=== PATIENT | female | born 1950 | race Caucasian/White ===

== ENCOUNTER 2017-05-20 12:35 | Inpatient (IN) ==
[2017-05-20] MEDS ORDERED: GI Cocktail 40 ML EACH PO ONE (12:47)
[2017-05-20] MEDS ORDERED: Ondansetron 4 MG/2 ML VIAL IVP ONE (12:47)
[2017-05-20] MEDS ORDERED: 0.9 % Sodium Chloride 1,000 ML IVC ONE ×2 (12:47→13:42)
[2017-05-20] MEDS ORDERED: *HR* HYDROmorphone (PF) 1 MG/ML SYRINGE IVP ONE (12:47)
--- NOTE | 2017-05-20 12:58 | Emergency Department Note ---
Disposition Clinical Impression: Pleural effusion, Dehydration, Weakness, HCAP (healthcare-associated pneumonia) Sepsis Qualifiers: Sepsis type: sepsis due to unspecified organism Qualified Code(s): A41.9 - Sepsis, unspecified organism Intractable nausea and vomiting Qualifiers: Vomiting type: unspecified Qualified Code(s): R11.2 - Nausea with vomiting, unspecified Disposition: Admitted As Inpatient Condition: Fair General Adult HPI - General Chief complaint: ED Abdominal Pain Stated complaint: Vomiting,fatique Time Seen by Provider: 05/20/17 12:38 Source: patient Mode of arrival: private vehicle Limitations: no limitations Nursing Notes Reviewed: Yes Vital Signs Reviewed: Yes - History of Present Illness HPI Narrative: 67-year-old female history of lung cancer currently on chemotherapy with her last treatment roughly 2 weeks ago, prior breast cancer, hypertension who presents to the ER with a chief complaint of vomiting, fatigue and cough. Patient states that for 3 days she has had nausea and vomiting at home unable to keep down any food or fluids. Family reports she has never been sick after receiving chemotherapy but they did change her last regimen 3 weeks ago. She states that she has had abdominal pain in the epigastric region and takes Prilosec at home. She was seen today by her oncologist who referred her here due to concern for dehydration. Family also reports oncology was concerned about her brain and wanted a head CT performed. She reports a prior surgical history of cholecystectomy. She denies fevers at home. She has had a cough but says that is improving. No diarrhea. No other complaints. Pt Subjective Complaint: Weakness, vomiting, Cough Onset (ago): day(s) (3) Location: abdomen Radiation: non-radiation Pain Severity: moderate Pain Scale: 6 Quality: aching Consistency: constant Improves with: nothing Worsens with: nothing Associated symptoms: Reports: cough, nausea/vomiting, weakness. Denies: chest pain, fever/chills, shortness of breath Treatments Prior to Arrival: none - Related Data Home Medications Medication Instructions Recorded Confirmed Atorvastatin [Lipitor] 80 mg PO DAILY 01/29/16 05/20/17 Metoprolol [Lopressor] 12.5 mg PO BID 01/29/16 05/20/17 levoFLOXacin [Levaquin] 500 mg PO DAILY 05/20/17 05/20/17 Previous Rx's Medication Instructions Recorded Aspirin 81 mg PO DAILY tab.chew 10/31/15 Cholecalciferol (Vitamin D3) 5,000 unit PO DAILY #30 capsule 10/31/15 [Dialyvite Vitamin D] Clopidogrel [Plavix] 75 mg PO DAILY #30 tablet 10/31/15 Omeprazole [PriLOSEC] 40 mg PO DAILY #30 cap 12/30/16 Ibuprofen [Motrin] 600 mg PO TID PRN #20 tab 02/21/17 Ondansetron [Zofran] 8 mg PO Q8HR PRN #90 tablet 03/13/17 Prochlorperazine Maleate 10 mg PO Q8HR PRN #90 tablet 03/13/17 [Compazine] Morphine Immed Rel [Morphine 15 mg PO BID PRN #60 tab 04/28/17 Sulfate] Levothyroxine [Synthroid] 175 mcg PO DAILY #30 tablet 05/13/17 Allergies Allergy/AdvReac Type Severity Reaction Status Date / Time butorphanol [From Stadol] Allergy Severe Anaphylaxis Verified 05/20/17 12:40 codeine Allergy Severe Anaphylaxis Verified 05/20/17 12:40 All systems ED: reviewed and negative except as stated. Constitutional: Reports: weakness. Denies: fever Cardiovascular: Denies: chest pain Respiratory: Reports: cough. Denies: dyspnea Gastrointestinal: Reports: abdominal pain, nausea, vomiting. Denies: diarrhea Genitourinary: Denies: dysuria, hematuria Past Medical History - Past Medical History Attestation: Yes The following information was validated with the patient. Source: patient Medical history: Reports: cancer, coronary artery disease, diabetes, myocardial infarction, peripheral artery disease, valvular heart disease Surgical history: Reports: appendectomy, cancer surgery, cholecystectomy, other Psychiatric history: Reports: anxiety, depression - Social History Smoking Status: Former smoker Smokeless Tobacco Status: No Alcohol use: Reports: none Drug use: Reports: none Physical Exam - General Limitations: no limitations General appearance: alert, in no apparent distress, cachectic - Head Head exam: atraumatic, normocephalic, normal inspection - Eye Eye exam: Present: normal appearance, EOMI - ENT ENT exam: normal exam, mucous membranes dry - Neck Neck exam: Present: normal inspection, full ROM - Chest Chest inspection: Present: normal inspection, symmetric chest wall rise - Respiratory Respiratory exam: Present: normal lung sounds bilaterally - Cardiovascular Cardiovascular exam: Present: normal rhythm, tachycardia, normal heart sounds - Abdominal Exam Abdominal exam: Present: soft, tenderness (Patient has moderate tenderness to palpation in the epigastric region without distention, rigidity or guarding.) - Extremities Exam Extremities exam: Present: normal inspection, full ROM - Expanded Upper Extremity Exam Shoulder exam: Present: normal inspection, full ROM Arm exam: Present: normal inspection, full ROM Elbow exam: Present: normal inspection, full ROM Forearm/Wrist exam: Present: normal inspection, full ROM Hand exam: Present: normal inspection, full ROM Vascular exam: Normal: radial pulse - Expanded Lower Extremity Exam Hip/Pelvis exam: Present: normal inspection, full ROM Upper leg exam: Present: normal inspection, full ROM Knee exam: Present: normal inspection, full ROM Lower leg exam: Present: normal inspection, full ROM Ankle exam: Present: normal inspection, full ROM Foot/toe exam: Present: normal inspection, full ROM Neurovascular/Tendon exam: Absent: motor deficit, sensory deficit - Neurological Exam Neurological exam: Present: alert, other (GCS 15. Nonfocal neurologic exam.) - Psychiatric Psychiatric exam: Present: normal affect, normal mood - Skin Skin exam: Present: warm, dry, intact, normal color Course Course Narrative: Patient seen and examined. Vital signs reviewed. She is tachycardic here with a stable blood pressure. She does appear to be dehydrated on exam. We will obtain basic labs, urinalysis, CT of the abdomen and pelvis for evaluation of her nausea vomiting and abdominal pain. We will also obtain an EKG and chest x- ray given her cough. We will also order a head CT scan as the family reports a prior history of treatments although she was never diagnosed with brain cancer given her recent vomiting. Patient will likely require admission for dehydration, intractable nausea and vomiting. - Reevaluation(s) Reevaluation #1: I discussed the results of labs and imaging today with the patient. She has a complete opacification of the right lung. She is in agreement to have a CT scan of the chest for further evaluation. Reevaluation #2: Discussed results of the CT scan with the patient. - Consultations Consultation #1: At the request of the hospitalist I spoke with the on-call photogrammetric engineer. Discussed the patient's history and exam imaging and lab findings. They are happy to see the patient in consult. I will place a consult order into the chart. Vital Signs Temperature 98.0 F 05/20/17 12:43 Pulse Rate 146 05/20/17 12:43 Respiratory Rate 20 05/20/17 12:43 Blood Pressure 112/58 05/20/17 12:43 O2 Sat by Pulse Oximetry 98 05/20/17 12:43 Temperature 98.0 F 05/20/17 12:43 Pulse Rate 70 05/20/17 15:24 Respiratory Rate 18 05/20/17 16:23 Blood Pressure 96/61 05/20/17 16:23 O2 Sat by Pulse Oximetry 98 05/20/17 15:24 Oxygen Delivery Oxygen Delivery Room Air Medical Decision Making - MDM Narrative Medical decision making narrative: 67-year-old female presents to the ER due to weakness, vomiting and cough. Currently on chemotherapy for lung cancer. She is afebrile here. She has a complete opacification of her right lung. Her white count is 19 here which is greatly elevated from her baseline. Given concern for postobstructive pneumonia patient is placed on broad-spectrum antibiotics including vancomycin, Zosyn and Levaquin. CT scan of the abdomen and pelvis does not delineate an acute abnormality. Head CT read as normal as well. The patient admitted to the hospitalist service for sepsis, pleural effusion, intractable nausea and vomiting and weakness. - Lab Data Lab results reviewed: Yes I reviewed the patient's lab results. Result diagrams: 05/20/17 12:55 05/20/17 12:55 Lab Results 05/20/17 05/20/17 05/20/17 Range/Units 12:55 12:55 12:55 WBC 19.3 H D (4.3-11.1) K/mcL RBC 3.35 L (3.82-4.97) M/mcL Hgb 8.6 L (11.5-15.4) g/dL Hct 28.2 L (35.3-44.9) % MCV 84.2 (83.0-100.0) fL MCH 25.7 L (28.0-33.3) pg MCHC 30.5 L (31.6-35.5) g/dL RDW 18.2 H (11.5-14.5) % Plt Count 245 (140-400) K/mcL MPV 11.1 (9.4-12.4) fL Seg Neutrophils % 84.0 % Lymphocytes % 8.0 % Monocytes % 4.0 % Eosinophils % 2.0 % Metamyelocytes % 2.0 H (0) % Neutrophils # 16.2 H (1.6-8.9) K/mcL Lymphocytes # 1.5 (0.6-4.6) K/mcL Monocytes # 0.8 (0.0-1.3) K/mcL Eosinophils # 0.4 (0.0-0.6) K/mcL Nucleated RBCs/100 WBC 0.5 H (0) /100 WBC Platelet Estimate Normal (Normal) Polychromasia 1+ A (Not Present) Hypochromasia Present A (Not Present) Anisocytosis 1+ A (Not Present) Macrocytosis Present A (Not Present) Sodium 134 L (136-145) mEq/L Potassium 4.4 (3.5-4.5) mEq/L Chloride 100 (98-109) mEq/L Carbon Dioxide 23 (19-29) mEq/L BUN 25 H (7-20) mg/dL Creatinine 1.13 H (0.57-1.11) mg/dL Est GFR ( Amer) 58 L (> 60) Est GFR (Non-Af Amer) 48 L (> 60) BUN/Creatinine Ratio 22 (6-26) Glucose 137 H (70-99) mg/dL Calculated Osmolality 285 (280-300) Lactic Acid (0.5-2.2) mmol/L Calcium 8.6 (8.6-10.8) mg/dL Total Bilirubin < 0.3 (0.2-1.2) mg/dL Direct Bilirubin 0.2 (0.0-0.5) mg/dL Indirect Bilirubin 0.1 (0.0-1.2) mg/dL AST 17 (5-34) Units/L ALT < 6 (0-55) Units/L Alkaline Phosphatase 100 (38-126) Units/L Troponin I 0.00 (0-0.03) ng/mL Serum Total Protein 5.9 L (6.0-8.3) g/dL Albumin 2.4 L (3.5-5.0) g/dL Globulin 3.5 (2.4-3.5) g/dL Albumin/Globulin Ratio 0.7 L (1.1-2.2) Amylase 27 (25-125) Units/L Lipase 13 (8-78) Units/L Urine Color (Yellow) Urine Clarity (Clear) Urine pH (5.0-8.0) pH Units Ur Specific [place] (1.010-1.025) Urine Protein (Neg-Trace) mg/dL Urine Glucose (UA) (Normal) mg/dL Urine Ketones (Negative) mg/dL Urine Blood (Negative) Urine Nitrite (Negative) Urine Bilirubin (Negative) Urine Urobilinogen (Normal) mg/dL Ur Leukocyte Esterase (Negative) Urine Microscopic RBC (0-3) per hpf Urine Microscopic WBC (0-3) per hpf Ur Squamous Epith Cells (None-Few) per lpf Amorphous Sediment (Few) Urine Bacteria (None-Few) per hpf Hyaline Casts (None-Few) per lpf Urine Mucus (Few) Ur Culture Indicated? (NO) 05/20/17 05/20/17 Range/Units 14:29 14:38 WBC (4.3-11.1) K/mcL RBC (3.82-4.97) M/mcL Hgb (11.5-15.4) g/dL Hct (35.3-44.9) % MCV (83.0-100.0) fL MCH (28.0-33.3) pg MCHC (31.6-35.5) g/dL RDW (11.5-14.5) % Plt Count (140-400) K/mcL MPV (9.4-12.4) fL Seg Neutrophils % % Lymphocytes % % Monocytes % % Eosinophils % % Metamyelocytes % (0) % Neutrophils # (1.6-8.9) K/mcL Lymphocytes # (0.6-4.6) K/mcL Monocytes # (0.0-1.3) K/mcL Eosinophils # (0.0-0.6) K/mcL Nucleated RBCs/100 WBC (0) /100 WBC Platelet Estimate (Normal) Polychromasia (Not Present) Hypochromasia (Not Present) Anisocytosis (Not Present) Macrocytosis (Not Present) Sodium (136-145) mEq/L Potassium (3.5-4.5) mEq/L Chloride (98-109) mEq/L Carbon Dioxide (19-29) mEq/L BUN (7-20) mg/dL Creatinine (0.57-1.11) mg/dL Est GFR ( Amer) (> 60) Est GFR (Non-Af Amer) (> 60) BUN/Creatinine Ratio (6-26) Glucose (70-99) mg/dL Calculated Osmolality (280-300) Lactic Acid 1.4 (0.5-2.2) mmol/L Calcium (8.6-10.8) mg/dL Total Bilirubin (0.2-1.2) mg/dL Direct Bilirubin (0.0-0.5) mg/dL Indirect Bilirubin (0.0-1.2) mg/dL AST (5-34) Units/L ALT (0-55) Units/L Alkaline Phosphatase (38-126) Units/L Troponin I (0-0.03) ng/mL Serum Total Protein (6.0-8.3) g/dL Albumin (3.5-5.0) g/dL Globulin (2.4-3.5) g/dL Albumin/Globulin Ratio (1.1-2.2) Amylase (25-125) Units/L Lipase (8-78) Units/L Urine Color Yellow (Yellow) Urine Clarity Slightly Hazy (Clear) Urine pH 6.0 (5.0-8.0) pH Units Ur Specific [place] 1.024 (1.010-1.025) Urine Protein 100 H (Neg-Trace) mg/dL Urine Glucose (UA) Normal (Normal) mg/dL Urine Ketones 15 H (Negative) mg/dL Urine Blood Negative (Negative) Urine Nitrite Negative (Negative) Urine Bilirubin Moderate H (Negative) Urine Urobilinogen Normal (Normal) mg/dL Ur Leukocyte Esterase Negative (Negative) Urine Microscopic RBC 0-3 (0-3) per hpf Urine Microscopic WBC 5-15 H (0-3) per hpf Ur Squamous Epith Cells Few (None-Few) per lpf Amorphous Sediment Few (Few) Urine Bacteria None Seen (None-Few) per hpf Hyaline Casts Few (None-Few) per lpf Urine Mucus Few (Few) Ur Culture Indicated? YES A (NO) - Radiology Data Radiology results reviewed: Yes I reviewed the patient's radiology results. Abdomen/Pelvis CT 05/20/17 12:48 IMPRESSION: No acute intra-abdominal or pelvic process is identified. No evidence of small or large bowel obstruction or acute inflammatory process. Large right pleural effusion, with similar appearing consolidation of the right lower lobe which may be post obstructive in this patient with known right-sided lung cancer. Again identified is similar haziness within the mesentery, with scattered small lymph nodes. No interval development of lymphadenopathy. D/ / Jean Franklin MD / Jean Franklin MD Interpreting Provider: Jean Franklin MD Head CT 05/20/17 12:49 IMPRESSION: No acute intracranial abnormality. D/ / Ed Castle MD / Ed Castle MD Interpreting Provider: Ed Castle MD Chest X-Ray 05/20/17 12:50 IMPRESSION: Complete opacification of the right hemithorax, likely representing a combination of pleural fluid and consolidation. This finding has progressed from the prior examination. D/ / Chris Peace MD / Chris Peace MD Interpreting Provider: Chris Peace MD Chest CT 05/20/17 14:17 IMPRESSION: 1. Suspected persistent right perihilar mass which is difficult to measure given that there is now complete consolidation of the right lung which surrounds the right perihilar mass, with soft tissue attenuation completely obstructing the bronchus intermedius, representing either mucous plugging or soft tissue invasion by the patient's mass lesion. There is minimal aeration of the right upper lobe. 2. Interval increase in size of a now large right pleural effusion. 3. Interval development of a small left pleural effusion. 4. Mild left basilar atelectasis. 5. Multiple stable scattered pulmonary nodules throughout the left lung, large measuring 5 mm within left lower lobe. 1 is likely reflect benign coma, continued imaging surveillance is suggested as metastatic disease is not excluded. 6. Slight interval worsening of metastatic mediastinal lymphadenopathy. 7. Stable small pericardial effusion. D/ / Ludwig Dominguez MD / Ludwig Dominguez MD Interpreting Provider: Ludwig Dominguez MD - EKG Data EKG #1 EKG attestation: Yes I reviewed and interpreted this EKG. EKG results narrative: EKG demonstrates sinus tachycardia with rate of 141. Normal axis. No medical intervals. Nonspecific ST-T wave changes in lateral and inferior leads likely secondary to rate. No gross ST elevations or depressions. [email or web address] - Di Situation: Demographics, MOA Background: Presenting Complaint, Relevant PMH, Meds, & Allergies Assessment: Vital Signs, Course and respsone to treatment, Exam Concerns, Patient/Family Expectation, Pertinant Lab Results, Outstanding Labs Recommendation: Barrier(s) to disposition, Recommendation based on pending studies, treatments, or consults [facility] Report Given to: Dr. Aubrey Sevilla Repor Time: 15:54 (Request pulmonology consult) Attestation Statement - Attestation Attestation: I examined this patient and my medical decision-making was reviewed with the Resident Physician. I agree with the documented findings, disposition and treatment plan as described except to the extent set forth below. There is evidence of opacification of the lung. Plan to consult pulmonology and admit with broad-spectrum antibiotics with coverage for hospital-acquired pneumonia. White blood cell count is elevated. Patient be admitted for further evaluation. No respiratory distress at time of admission.
[2017-05-20] MEDS ORDERED: Piperacillin/Tazobactam 3.375 GM in D5% in Water (Mini-Bag+) 100 ML IVPB ONE (13:05)
[2017-05-20] MEDS ORDERED: Levofloxacin 750 MG/150 ML 750 MG/150 ML BAG IVPB ONE (13:05)
[2017-05-20 13:09] LABS: Hematocrit 28.2 % (35.3-44.9); Hemoglobin 8.6 g/dL (11.5-15.4); Mean Corpuscular HGB Conc 30.5 g/dL (31.6-35.5); Mean Corpuscular Hemoglobin 25.7 pg (28.0-33.3); Mean Corpuscular Volume 84.2 fL (83.0-100.0); Mean Platelet Volume 11.1 fL (9.4-12.4); Nucleated Red Blood Cells 0.5 /100 WBC (0); Platelet Count 245 K/mcL (140-400); Red Blood Count 3.35 M/mcL (3.82-4.97); Red Cell Distribution Width 18.2 % (11.5-14.5)
[2017-05-20 13:24] LABS: Alanine Aminotransferase < 6 Units/L (0-55); Albumin 2.4 g/dL (3.5-5.0); Albumin/Globulin Ratio 0.7 (1.1-2.2); Alkaline Phosphatase 100 Units/L (38-126); Amylase 27 Units/L (25-125); Aspartate Amino Transferase 17 Units/L (5-34); BUN/Creatinine Ratio 22 (6-26); Bilirubin,Direct 0.2 mg/dL (0.0-0.5); Bilirubin,Indirect 0.1 mg/dL (0.0-1.2); Bilirubin,Total < 0.3 mg/dL (0.2-1.2); Blood Urea Nitrogen 25 mg/dL (7-20); Calcium 8.6 mg/dL (8.6-10.8); Carbon Dioxide 23 mEq/L (19-29); Chloride 100 mEq/L (98-109); Globulin 3.5 g/dL (2.4-3.5); Glucose 137 mg/dL (70-99); Lipase 13 Units/L (8-78); Osmolality,Calculated 285 (280-300); Potassium 4.4 mEq/L (3.5-4.5); Sodium 134 mEq/L (136-145); Total Protein 5.9 g/dL (6.0-8.3); eGFR For African Americans 58 (> 60); eGFR For Non-African Americans 48 (> 60)
[2017-05-20 13:38] LABS: Eosinophils # 0.4 K/mcL (0.0-0.6); Lymphocytes # 1.5 K/mcL (0.6-4.6); Monocytes # 0.8 K/mcL (0.0-1.3); Neutrophils # 16.2 K/mcL (1.6-8.9); Platelet Estimate Normal (Normal)
[2017-05-20 13:39] LABS: Anisocytosis 1+ (Not Present); Hypochromasia Present (Not Present); Macrocytosis Present (Not Present); Polychromasia 1+ (Not Present)
[2017-05-20] MEDS ORDERED: Vancomycin 1,000 MG in D5% in Water 250 ML IVPB ONE ×2 (14:00→16:00)
[2017-05-20 14:45] LABS: Bilirubin,Urine Moderate (Negative); Blood,Urine Negative (Negative); Color,Urine Yellow (Yellow); Glucose,Urine (UA) Normal (Normal); Ketones,Urine 15 mg/dL (Negative); Leukocyte Esterase,Urine Negative (Negative); Nitrite,Urine Negative (Negative); Protein,Urine 100 mg/dL (Neg-Trace); Specific Gravity,Urine 1.024 (1.010-1.025); Urobilinogen,Urine Normal (Normal)
[2017-05-20 14:48] LABS: Bacteria,Urine None Seen per hpf (None-Few)
[2017-05-20 14:54] LABS: Clarity,Urine Slightly Hazy (Clear)
[2017-05-20 15:00] LABS: Hyaline Casts,Urine Few per lpf (None-Few)
[2017-05-20 15:01] LABS: Mucus,Urine Few (Few); Squamous Epithelial Cell,Urine Few per lpf (None-Few)
[2017-05-20 15:02] LABS: Amorphous Sediment,Urine Few (Few)
[2017-05-20 15:03] LABS: RBC,Urine 0-3 per hpf (0-3)
[2017-05-20] MEDS ORDERED: Ondansetron ODT 4 MG TAB.RAPDIS PO PRN (16:49)
[2017-05-20] MEDS ORDERED: *HR* Morphine Immed Rel 30 MG TABLET PO PRN (16:49)
[2017-05-20] MEDS ORDERED: Naloxone 0.4 MG/ML INJ IVP PRN (16:50)
[2017-05-20] MEDS ORDERED: *HR* HYDROmorphone (PF) 1 MG/ML SYRINGE IVP PRN (16:50)
[2017-05-20] MEDS ORDERED: Acetaminophen 325 MG TABLET PO PRN (16:53)
[2017-05-20] MEDS ORDERED: Vancomycin 1,000 MG in D5% in Water 250 ML IVPB SCH (17:00)
[2017-05-20 17:30] LABS: INR 1.2; Prothrombin Time 13.1 Seconds (9.4-12.1)
--- NOTE | 2017-05-20 17:38 | Internal Med History&Physical ---
<Ludwig Marroquin - Last Filed: 05/20/17 18:14> Date of Encounter: 05/20/17 Time of Encounter: 17:29 Assessment and Plan (1) Intractable nausea and vomiting Current visit: Yes Status: Acute - Likely secondary to recent chemotherapy treatments versus increased abdominal pressure secondary to pleural effusion. Less likely infectious cause - No episodes of vomiting today. Patient reports improved symptoms after GI cocktail in the emergency department. - Diet as tolerated - Prilosec, Zofran, Compazine Qualifiers: Vomiting type: unspecified Qualified Code(s): R11.2 - Nausea with vomiting , unspecified (2) Dehydration Current visit: Yes Status: Acute - The hydration secondary to decreased oral intake for the past 3 days - Received 2 L of normal saline in the emergency department - Patient reports improvement of symptoms after GI cocktail and emergency department. - We will advance diet as tolerated (3) HCAP (healthcare-associated pneumonia) Current visit: Yes Status: Acute - Given elevated white count of 19.3, radio opaque right lung, history of recent chemotherapy and cough - will start on empiric antibiotics of vancomycin, Zosyn, Levaquin - Afebrile since admission. Tachycardic of 146 on admission, currently 73 - Lactic acid 1.4. (4) Pleural effusion Current visit: Yes Status: Acute - Chest x-ray and CT chest showing arch pleural effusion involving entire right lung - Thoracentesis performed on 05/20/17 - Follow up chest xray has been ordered - Pulmonology consulted, will see her tomorrow (5) Anemia Current visit: No Status: Chronic - Chronic anemia - H&H on admission of 8.6/28.2 - MCV of 84.2 - Clinic combination of chronic disease and iron deficiency - Continue to monitor Qualifiers: Anemia type: unspecified type Qualified Code(s): D64.9 - Anemia, unspecified (6) Coronary artery disease Current visit: No Status: Chronic - Stable. No complaints of chest pain - Continue home aspirin, atorvastatin, metoprolol Qualifiers: Coronary Disease-Associated Artery/Lesion type: unspecified vessel or lesion type [place] vs. transplanted heart: [place] heart Associated angina: without angina Qualified Code(s): I25.10 - Atherosclerotic heart disease of [place] coronary artery without angina pectoris (7) Small cell lung cancer Current visit: No Status: Chronic - History of small cell lung cancer - Receiving chemotherapy, most recently 2 weeks ago. Next treatment scheduled for Monday 05/28 - Continue treatment as outpatient Qualifiers: Laterality: right Qualified Code(s): C34.91 - Malignant neoplasm of unspecified part of right bronchus or lung (8) DVT prophylaxis Current visit: Yes Status: Acute SCDs Internal Medicine - H&P: HPI Chief complaint: nausea and vomiting x 3 days Admitted From: Emergency Dept Plans for Post Hospital Care: Home History of present illness: Ms. Jesus is a 67 year old female recently emerged from the chief complaint of nausea and vomiting, abdominal pain 3 days. She is a significant past medical history of small cell lung cancer for which she is currently receiving chemotherapy with her last treatment approximately 2 weeks ago. She sees chemotherapy every 3 weeks. She does not experience these type of adverse effects for her chemotherapy treatment to this point, however she is early on in her treatment per family. Patient states that she began to experience sudden onset nausea, vomiting, abdominal pain starting Thursday evening. She states that she experienced 3 episodes of vomiting that were clear without evidence of bile, hematemesis, coffee-ground emesis. She reports no further episodes of vomiting since, however she does state that she has been unable to keep down any food or liquids since Thursday. She reports decreased appetite, as well as odynophagia as well as epigastric abdominal pain at / and constant and states that the food "just sits in her stomach" after meals. Abdominal pain is dull in nature and is worse after attempting meals. No relieving factors. He states she has not eaten or drank anything except for one popsicle which she immediately experienced vomiting afterwards on Thursday. She was seen by her oncologist today, and was told to go the emergency room for concern of dehydration. Denies Sick contacts or recent travel. She denies any symptoms of fever, chills, chest pain, melena, hematochezia. She does admit to shortness of breath exacerbated with exertion and cough with thick white sputum production. Has been present and unchanging for a couple weeks. She also admits to constipation for the past couple days, however she believes this is attributed to not eating. Past Med Surg Social Fam HX - Past Medical History Medical history: cancer, coronary artery disease, diabetes, myocardial infarction, peripheral artery disease, valvular heart disease Psychiatric history: anxiety, depression - Past Surgical History Surgical History: appendectomy, cancer surgery, cholecystectomy, other - Social History Smoking Status: Former smoker Smokeless Tobacco Status: No Alcohol use: none Drug use: none - Family History Mother Living Status: Hx Family Cancer: Yes (breast) Father Family Member Ethnicity: Non- Living Status: Hx Family Cardiac Disorders: Yes Internal Medicine - H&P: Meds Aspirin 81 mg PO DAILY tab.chew 10/31/15 [Rx] Cholecalciferol (Vitamin D3) [Dialyvite Vitamin D] 5,000 unit PO DAILY #30 capsule 10/31/15 [Rx] Clopidogrel [Plavix] 75 mg PO DAILY #30 tablet 10/31/15 [Rx] Atorvastatin [Lipitor] 80 mg PO DAILY 01/29/16 [History] Metoprolol [Lopressor] 12.5 mg PO BID 01/29/16 [History] Omeprazole [PriLOSEC] 40 mg PO DAILY #30 cap 12/30/16 [Rx] Ibuprofen [Motrin] 600 mg PO TID PRN #20 tab 02/21/17 [Rx] Ondansetron [Zofran] 8 mg PO Q8HR PRN #90 tablet 03/13/17 [Rx] Prochlorperazine Maleate [Compazine] 10 mg PO Q8HR PRN #90 tablet 03/13/17 [Rx] Morphine Immed Rel [Morphine Sulfate] 15 mg PO BID PRN #60 tab 04/28/17 [Rx] Levothyroxine [Synthroid] 175 mcg PO DAILY #30 tablet 05/13/17 [Rx] levoFLOXacin [Levaquin] 500 mg PO DAILY 05/20/17 [History] 3 Allergy/AdvReac Type Severity Reaction Status Date / Time butorphanol [From Stadol] Allergy Severe Anaphylaxis Verified 05/20/17 12:40 codeine Allergy Severe Anaphylaxis Verified 05/20/17 12:40 All Systems PM: A 10-system review of systems was performed and is negative for pertinent findings except as documented above in the HPI. - Constitutional Constitutional: as per HPI, anorexia, fatigue, no chills, no fever(s) - EENT Nose, mouth and throat: dry mouth, odynophagia - Cardiovascular Cardiovascular ROS IM: dyspnea, dyspnea on exertion, no chest pain, no diaphoresis, no edema - Respiratory Respiratory: cough, dyspnea, dyspnea on exertion, no pain on inspiration - Gastrointestinal Gastrointestinal: abdominal pain, constipation, dyspepsia, early satiety, odynophagia, no diarrhea, no hematemesis, no hematochezia, no melena - Musculoskeletal Musculoskeletal ROS IM: muscle weakness - Neurological Neurological ROS: as per HPI - Psychiatric Psychiatric: as per HPI - Constitutional Vitals: Temp Pulse Resp BP Pulse Ox 98.0 F 70 18 96/61 98 05/20/17 12:43 05/20/17 15:24 05/20/17 16:23 05/20/17 16:23 05/20/17 15:24 Exam: Gen.: Vitals noted. No acute distress. AAOx3 HEENT: PERRL/EOMI, oropharynx clear, Normocephalic, atraumatic. Dry mucous membranes Neck: Supple. No adenopathy. Cardiac: RRR, no murmur, +S1/S2 Pulmonary: Unable to auscultate sounds on right side, clear to auscultation on the right side. Abdomen: Tender to palpation in epigastric region. soft, BS noted, no guarding Back: Nontender throughout. MSK: ROM intact, no joint swelling noted Extremities: no BLE edema, nontender calf, no cyanosis or clubbing Neuro: A&Ox3, moves all extremities, no focal deficits Psych: Appropriate mood and behavior Internal Med - H&P Results - Labs CBC & Chem 7: 05/20/17 12:55 05/20/17 12:55 <Lorenzo Al A - Last Filed: 05/20/17 19:15> Date of Encounter: 05/20/17 Assessment and Plan (1) Acute on chronic respiratory failure with hypoxia Current visit: Yes Status: Acute (2) Pleural effusion Current visit: Yes Status: Acute (3) Diabetes mellitus Current visit: No Status: Chronic Qualifiers: Diabetes mellitus type: type 2 Diabetes mellitus complication status: with unspecified complications Diabetes mellitus 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 transplanted heart: [place] heart Associated angina: without angina Qualified Code(s): I25.10 - Atherosclerotic heart disease of [place] coronary artery without angina pectoris (5) Small cell lung cancer Current visit: No Status: Chronic Qualifiers: Laterality: right Qualified Code(s): C34.91 - Malignant neoplasm of unspecified part of right bronchus or lung Internal Medicine - H&P: HPI History of present illness: Ms. Jesus is a 67 year old female All Systems PM: A 10-system review of systems was performed and is negative for pertinent findings except as documented above in the HPI. - Constitutional Vitals: Temp Pulse Resp BP Pulse Ox 97.6 F 73 14 106/65 100 05/20/17 18:31 05/20/17 18:31 05/20/17 18:31 05/20/17 18:31 05/20/17 18:31 Internal Med - H&P Results - Labs CBC & Chem 7: 05/20/17 12:55 05/20/17 12:55 - Attending Attestation I examined this patient and my medical decision-making was reviewed with the Resident Physician on 05/20/17. I agree with the documented findings, disposition and treatment plan as described except to the extent set forth below. 67 y/o with hx of lung cancer presents with nausea, vomiting and dyspnea. Symptoms have been worsening. In ED found to have large R pleural effusion and lung collapse. She was admitted for further evaluation and treatment. Currently she feels very fatigued. Dyspnea at baseline. Exam Alert. Resting. Mucus membranes moist Heart reg Lungs diminished on R Abd soft I/P 1. Hypoxia 2. R pleural effusion Further diagnoses and plan as above.
--- NOTE | 2017-05-20 18:13 | Procedure Note ---
<Ludwig Marroquin - Last Filed: 05/20/17 18:46> Date of procedure: 05/20/17 Pre-op diagnosis: pleural effusion Post-op diagnosis: same Procedure: Date: 05/20/17 Time: 1400 Indictation: Pleural effusion Electric Lineman: Dr. Ludwig Marroquin Roadside Mechanic: Dr. Hermann Batres Attending: Dr. Lorenzo Al Timeout was completed verifying correct patient, procedure, site, positioning, as special equipment if applicable. The patient's right side was prepped and draped in a sterile manner after the appropriate infiltration level was confirmed by ultrasound and marked. 1% lidocaine was used to NSI and the surrounding skin. A finder needle was then used to locate the fluid and pleural fluid was obtained. An 11 blade scalpel was used to make the incision. The thoracentesis catheter was then threaded without difficulty. The patient had 1000 mL drained. The attending physician was present for the entire procedure. A postprocedure chest x-ray was ordered. Estimated blood loss: Minimal. The patient tolerated the procedure well and there were no consultations. Anesthesia: local Surgeon: Ludwig Marroquin Roadside Mechanic: Hermann Batres Estimated blood loss (cc): 1 IV fluids (cc): 0 Pathology: none sent Condition: stable <Lorenzo Al - Last Filed: 05/20/17 19:17> - Attending Attestation I examined this patient and my medical decision-making was reviewed with the Resident Physician on 05/20/17. I agree with the documented findings, disposition and treatment plan as described except to the extent set forth below. I supervised this procedure and it was longer than 5 minutes.
[2017-05-20 18:50] LABS: RBC,Pleural Fluid 0.004 M/mcL
[2017-05-20 21:03] LABS: Appearance of Pleural Fl Hazy (Clear)
[2017-05-20 21:20] LABS: Lactate Dehydrogenase 239 Units/L (159-327)
[2017-05-20 21:29] LABS: Total Protein 4.9 g/dL (6.0-8.3)
[2017-05-20] MEDS: Piperacillin/Tazobactam 3.375 GM in D5% in Water (Mini-Bag+) 100 ML IVPB SCH (21:41)
[2017-05-21 04:03] LABS: Hematocrit 21.1 % (35.3-44.9); Mean Corpuscular HGB Conc 30.8 g/dL (31.6-35.5); Mean Corpuscular Hemoglobin 25.9 pg (28.0-33.3); Mean Corpuscular Volume 84.1 fL (83.0-100.0); Mean Platelet Volume 10.9 fL (9.4-12.4); Nucleated Red Blood Cells 0.4 /100 WBC (0); Platelet Count 140 K/mcL (140-400); Red Blood Count 2.51 M/mcL (3.82-4.97); Red Cell Distribution Width 17.9 % (11.5-14.5)
[2017-05-21 04:10] LABS: Hemoglobin 6.5 g/dL (11.5-15.4)
[2017-05-21 04:29] LABS: Anisocytosis 1+ (Not Present); Eosinophils # 0.5 K/mcL (0.0-0.6); Lymphocytes # 1.3 K/mcL (0.6-4.6); Monocytes # 1.8 K/mcL (0.0-1.3); Neutrophils # 8.9 K/mcL (1.6-8.9)
[2017-05-21 04:30] LABS: Hypochromasia Present (Not Present); Platelet Estimate Normal (Normal); Toxic Granulation Present (Not Present)
[2017-05-21 04:33] LABS: BUN/Creatinine Ratio 23 (6-26); Blood Urea Nitrogen 23 mg/dL (7-20); Calcium 7.5 mg/dL (8.6-10.8); Carbon Dioxide 24 mEq/L (19-29); Chloride 104 mEq/L (98-109); Glucose 78 mg/dL (70-99); Magnesium 1.3 mg/dL (1.6-2.6); Osmolality,Calculated 283 (280-300); Potassium 4.3 mEq/L (3.5-4.5); Sodium 135 mEq/L (136-145); eGFR For African Americans > 60 (> 60); eGFR For Non-African Americans 56 (> 60)
[2017-05-21 05:13] LABS: Hematocrit 21.2 % (35.3-44.9); Hemoglobin 6.6 g/dL (11.5-15.4)
[2017-05-21] MEDS: Piperacillin/Tazobactam 3.375 GM in D5% in Water (Mini-Bag+) 100 ML IVPB SCH ×3 (05:56→21:54)
[2017-05-21] MEDS ORDERED: Pantoprazole 40 MG VIAL IVP SCH (09:00)
[2017-05-21] MEDS: Aspirin 81 MG TAB.CHEW PO SCH (09:39)
[2017-05-21] MEDS ORDERED: 0.9 % Sodium Chloride 250 ML ONE (10:29)
--- NOTE | 2017-05-21 10:56 | Pulmonology Consult Note ---
Date of Encounter: 05/21/17 Time of Encounter: 13:00 Assessment and Plan (1) Pleural effusion Current Visit: Yes Status: Acute Pleural effusion is recurrent due to underlying malignancy small cell carcinoma of the lung . Will need a plan regarding the management for pleural effusion . Repeat thoracentesis vs pleurex catheter . (2) Acute on chronic respiratory failure with hypoxia Current Visit: Yes Status: Acute Patient worsening hypoxic respiratory failure is due to her recurrent malignant pleural effusion this is the second accumulation within last 2 weeks . The plan was discussed with patient and family to undergo recurrent thoracentesis since it is a malignant effusion pleurex catheter is an option . Patient is not undecided at the moment . Patient after getting discharged will call pulm office will let us know whether she is agreeable pleurex catheter vs Repeat thoaracentesis . For possible suspected pneumonia patient can go home on 5 days of levofloxacin . History of Present Illness Consult date: 05/21/17 Requesting physician: Lorenzo Al Reason for consult: pleural effusion History of present illness: 67 year old female with past medical history significant for significant for right-sided small cell extensive stage carcinoma of lung had a few cycles of chemotherapy followed by oncology is coming with shortness of breath over 7 days. Patient undergone thoracentesis in the last week of April she felt better initially and slowly got worsening of shortness of breadth over time in the ER she had complete white out of her right lung , the CT scan showed a large pleural effusion with collapsed lung underwent thoracentesis patient says she is lot better now wants to go home patient had some cough with not much sputum production , denies any fever or chills . Pulmonary was consulted for pleurex catheter . Past Med Surg Social Fam HX - Past Medical History Medical history: cancer, coronary artery disease, diabetes, myocardial infarction, peripheral artery disease, valvular heart disease Psychiatric history: anxiety, depression - Past Surgical History Surgical History: appendectomy, cancer surgery, cholecystectomy, other - Social History Smoking Status: Former smoker Smokeless Tobacco Status: No Alcohol use: none Drug use: none - Family History Mother Living Status: Hx Family Cancer: Yes (breast) Father Family Member Ethnicity: Non- Living Status: Hx Family Cardiac Disorders: Yes Medications and Allergies Aspirin 81 mg PO DAILY tab.chew 10/31/15 [Rx] Cholecalciferol (Vitamin D3) [Dialyvite Vitamin D] 5,000 unit PO DAILY #30 capsule 10/31/15 [Rx] Clopidogrel [Plavix] 75 mg PO DAILY #30 tablet 10/31/15 [Rx] Atorvastatin [Lipitor] 80 mg PO DAILY 01/29/16 [History] Metoprolol [Lopressor] 12.5 mg PO BID 01/29/16 [History] Omeprazole [PriLOSEC] 40 mg PO DAILY #30 cap 12/30/16 [Rx] Ibuprofen [Motrin] 600 mg PO TID PRN #20 tab 02/21/17 [Rx] Ondansetron [Zofran] 8 mg PO Q8HR PRN #90 tablet 03/13/17 [Rx] Prochlorperazine Maleate [Compazine] 10 mg PO Q8HR PRN #90 tablet 03/13/17 [Rx] Morphine Immed Rel [Morphine Sulfate] 15 mg PO BID PRN #60 tab 04/28/17 [Rx] Levothyroxine [Synthroid] 175 mcg PO DAILY #30 tablet 05/13/17 [Rx] levoFLOXacin [Levaquin] 500 mg PO DAILY 05/20/17 [History] Cefdinir [Omnicef] 300 mg PO BID #6 capsule 05/21/17 [Rx] Doxycycline 100 mg PO BID #6 capsule 05/21/17 [Rx] 3 Allergy/AdvReac Type Severity Reaction Status Date / Time butorphanol [From Stadol] Allergy Severe Anaphylaxis Verified 05/20/17 12:40 codeine Allergy Severe Anaphylaxis Verified 05/20/17 12:40 All Systems: A 10-system review of systems was performed and is negative for pertinent findings except as documented above in the HPI. Physical Examination Vital Signs: Vital Signs, Last 4 Hours Temp Pulse Resp BP Pulse Ox 05/21/17 10:49 98.5 F 68 16 103/72 05/21/17 10:34 61 16 111/70 95 05/21/17 07:25 97.8 F 70 16 121/67 100 General appearance: other (mild respiratory distress) Effort: mildly labored Auscultation: right: diminished breath sounds (can hear breadth sounds from 3 rd intercostal space both anteriorly and posteriorly) Results - Laboratory Findings CBC and BMP: 05/21/17 15:45 05/21/17 03:52 PT/INR, D-dimer PT 13.1 Seconds (9.4-12.1) H 05/20/17 17:15 Abnormal lab findings: Abnormal lab results WBC 13.1 K/mcL (4.3-11.1) H 05/21/17 03:52 RBC 2.51 M/mcL (3.82-4.97) L 05/21/17 03:52 Hgb 6.6 g/dL (11.5-15.4) L 05/21/17 05:05 Hct 21.2 % (35.3-44.9) L 05/21/17 05:05 MCH 25.9 pg (28.0-33.3) L 05/21/17 03:52 MCHC 30.8 g/dL (31.6-35.5) L 05/21/17 03:52 RDW 17.9 % (11.5-14.5) H 05/21/17 03:52 Band Neutrophils % 6.0 % (0-4) H 05/21/17 03:52 Metamyelocytes % 4.0 % (0) H 05/21/17 03:52 Monocytes # 1.8 K/mcL (0.0-1.3) H 05/21/17 03:52 Nucleated RBCs/100 WBC 0.4 /100 WBC (0) H 05/21/17 03:52 Toxic Granulation Present (Not Present) A 05/21/17 03:52 Polychromasia 1+ (Not Present) A 05/20/17 12:55 Hypochromasia Present (Not Present) A 05/21/17 03:52 Anisocytosis 1+ (Not Present) A 05/21/17 03:52 Macrocytosis Present (Not Present) A 05/20/17 12:55 PT 13.1 Seconds (9.4-12.1) H 05/20/17 17:15 Sodium 135 mEq/L (136-145) L 05/21/17 03:52 BUN 23 mg/dL (7-20) H 05/21/17 03:52 Est GFR (Non-Af Amer) 56 (> 60) L 05/21/17 03:52 Calcium 7.5 mg/dL (8.6-10.8) L 05/21/17 03:52 Magnesium 1.3 mg/dL (1.6-2.6) L 05/21/17 03:52 Serum Total Protein 4.9 g/dL (6.0-8.3) L 05/20/17 21:00 Albumin 2.4 g/dL (3.5-5.0) L 05/20/17 12:55 Albumin/Globulin Ratio 0.7 (1.1-2.2) L 05/20/17 12:55 Urine Protein 100 mg/dL (Neg-Trace) H 05/20/17 14:29 Urine Ketones 15 mg/dL (Negative) H 05/20/17 14:29 Urine Bilirubin Moderate (Negative) H 05/20/17 14:29 Urine Microscopic WBC 5-15 per hpf (0-3) H 05/20/17 14:29 Ur Culture Indicated? YES (NO) A 05/20/17 14:29 Pleural Appearance Hazy (Clear) A 05/20/17 18:11 Pleural RBC 0.004 M/mcL (0.000-0.002) H 05/20/17 18:11 - Microbiology Findings Microbiology Findings: Microbiology, Last 48 Hours 05/20/17 18:11 Body Fluid Culture - Preliminary Pleural Fluid - Clinical Findings Intake & Output: Intake & Output 05/20/17 05/21/17 05/21/17 23:59 07:59 15:59 Intake Total 400 / 400 100 / 100 120 / 120 Output Total 0 / 0 100 / 100 275 / 275 Balance 400 / 400 0 / 0 -155 / -155 Weight 65.091 kg 61.235 kg Consult Discharge Plan - Plan Additional Instructions: Please follow up with her primary care physician as well as oncologist for further management of your medical conditions. Please complete your course of antibiotics Referrals: Trent Lemons MD [Primary Care Provider] - Prescriptions: Cefdinir [Omnicef] 300 mg PO BID #6 capsule Doxycycline 100 mg PO BID #6 capsule
[2017-05-21 15:50] LABS: Hematocrit 26.4 % (35.3-44.9); Mean Corpuscular HGB Conc 31.8 g/dL (31.6-35.5); Mean Corpuscular Hemoglobin 26.9 pg (28.0-33.3); Mean Corpuscular Volume 84.6 fL (83.0-100.0); Mean Platelet Volume 10.8 fL (9.4-12.4); Platelet Count 146 K/mcL (140-400); Red Blood Count 3.12 M/mcL (3.82-4.97); Red Cell Distribution Width 17.1 % (11.5-14.5)
[2017-05-21 15:53] LABS: Hemoglobin 8.4 g/dL (11.5-15.4)
[2017-05-21] MEDS ORDERED: Vancomycin 750 MG in D5% in Water 250 ML IVPB SCH (16:00)
--- NOTE | 2017-05-21 16:25 | Discharge Summary ---
<Ludwig Marroquin - Last Filed: 05/21/17 16:22> Date of Encounter: 05/21/17 Time of Encounter: 16:22 - Discharge Diagnosis (1) Intractable nausea and vomiting Priority: Primary Status: Acute (2) Dehydration Priority: Secondary Status: Acute (3) HCAP (healthcare-associated pneumonia) Priority: Secondary Status: Acute (4) Pleural effusion Priority: Secondary Status: Acute (5) Anemia Priority: Secondary Status: Chronic (6) Coronary artery disease Priority: Secondary Status: Chronic (7) Small cell lung cancer Priority: Secondary Status: Chronic (8) DVT prophylaxis Priority: Secondary Status: Acute - Discharge Medications Prescriptions: Cefdinir [Omnicef] 300 mg PO BID #6 capsule Doxycycline 100 mg PO BID #6 capsule Home Medications: Aspirin 81 mg PO DAILY tab.chew 10/31/15 [Rx] Cholecalciferol (Vitamin D3) [Dialyvite Vitamin D] 5,000 unit PO DAILY #30 capsule 10/31/15 [Rx] Clopidogrel [Plavix] 75 mg PO DAILY #30 tablet 10/31/15 [Rx] Atorvastatin [Lipitor] 80 mg PO DAILY 01/29/16 [History] Metoprolol [Lopressor] 12.5 mg PO BID 01/29/16 [History] Omeprazole [PriLOSEC] 40 mg PO DAILY #30 cap 12/30/16 [Rx] Ibuprofen [Motrin] 600 mg PO TID PRN #20 tab 02/21/17 [Rx] Ondansetron [Zofran] 8 mg PO Q8HR PRN #90 tablet 03/13/17 [Rx] Prochlorperazine Maleate [Compazine] 10 mg PO Q8HR PRN #90 tablet 03/13/17 [Rx] Morphine Immed Rel [Morphine Sulfate] 15 mg PO BID PRN #60 tab 04/28/17 [Rx] Levothyroxine [Synthroid] 175 mcg PO DAILY #30 tablet 05/13/17 [Rx] levoFLOXacin [Levaquin] 500 mg PO DAILY 05/20/17 [History] Cefdinir [Omnicef] 300 mg PO BID #6 capsule 05/21/17 [Rx] Doxycycline 100 mg PO BID #6 capsule 05/21/17 [Rx] Allergies/Adverse Reactions: 3 Allergy/AdvReac Type Severity Reaction Status Date / Time butorphanol [From Stadol] Allergy Severe Anaphylaxis Verified 05/20/17 12:40 codeine Allergy Severe Anaphylaxis Verified 05/20/17 12:40 Date of admission: 05/21/17 13:36 Primary care physician: Trent Lemons MD Discharging clinician: Ludwig Marroquin Anticipated date of discharge: 05/21/17 - Patient Status Disposition: Home, Self-Care Condition: Fair Functional capacity at discharge: independent ambulation Overall status at discharge: patient is progressing back to baseline - Discharge Instructions Follow Up With: Trent Lemons MD [Primary Care Provider] - Forms: ED Satisfaction Letter, Work/School Release Additional Instructions: Please follow up with her primary care physician as well as oncologist for further management of your medical conditions. Please complete your course of antibiotics - Diet and Activity Activity: increase activity as tolerated, resume usual activities as tolerated Diet: advance to your usual diet Hospital course: Ms. Jesus is a 67 year old female who presents to emergency room with complaint of nausea, vomiting, dehydration, inability to keep down food 3 days. She has a past medical history of small cell lung cancer for which she is receiving chemotherapy, most recently 2 weeks ago. She stated that when she attempts to eat, she experiences odynophagia, nausea with 3 episodes of vomiting , most recently Thursday, and states that the food "just sits in her stomach". She reports not being able to keep down liquids or solids. She denies similar episodes in the past, however states that this is a new round of chemotherapy. She denied any symptoms of hematemesis, coffee-ground emesis, changes in bowel movements, melena, hematochezia. Also denies chest pain. She also admitted to a productive cough with thick white sputum as well as shortness of breath on exertion. In the emergency room, signs are significant for tachycardia with pulse of 146, respiratory rate 20, remainder of vital signs within normal limits. Lab results were significant for elevated white blood cell count of 19.3, low H&H of 8.6/28.2, sodium 134, BUN/creatinine of 25/1.13. Abdominal/ pelvis CT revealed a large right pleural effusion, as well as on chest x-ray likely representing accommodation pleural fluid and consolidation. Head CT was negative for acute abnormality. Chest CT as above with mild atelectasis, pulmonary nodules and slight interval worsening of metastatic mediastinal lymphadenopathy. Patient was admitted to medicine service for further evaluation of pleural effusion, anemia, pneumonia, intractable nausea and vomiting. During course of hospital stay, patient received thoracentesis removing 1 L of pleural fluid without complications. Pleural fluid analysis revealed exudative pleural effusion likely secondary to known malignancy. She was treated with vancomycin, Zosyn, Levaquin for possible pneumonia given elevation of white blood cell count and consolidation and chest CT. Patient was noted to be increasingly anemic with H&H of 6.6/21.2 this morning. She received 1 unit of packed red blood cells, tolerated infusion well and repeats complete blood count in the afternoon revealed increase of hemoglobin to 8.4. On day of discharge, patient has no current complaints, denies any symptoms of nausea, vomiting and tolerated her breakfast and lunch well without complaints. She does still admit to mild cough, but states it is getting better. She will be sent home on oral antibiotics. She was instructed to follow-up with her primary care physician as well as oncologist for further management of her chronic medical conditions. She is also instructed to return to the emergency department with worsening of symptoms. - Time Spent with Patient Total time spent providing and/or coordinating discharge services: 40 minutes - Constitutional Vitals: Temp Pulse Resp BP Pulse Ox 98.5 F 68 16 103/72 95 05/21/17 10:49 05/21/17 10:49 05/21/17 10:49 05/21/17 10:49 05/21/17 10:34 Exam: Gen.: Vitals noted. No acute distress. AAOx3 HEENT: PERRL/EOMI, oropharynx clear, Normocephalic, atraumatic, moist mucous membranes Neck: Supple. No adenopathy. Cardiac: RRR, no murmur, +S1/S2 Pulmonary: Decreased breath sounds on right, improved from previous. Clear to Auscultation on left Abdomen: soft, nontender, BS noted, no guarding Back: Nontender throughout. MSK: ROM intact, no joint swelling noted Extremities: no BLE edema, nontender calf, no cyanosis or clubbing Neuro: A&Ox3, moves all extremities, no focal deficits Psych: Appropriate mood and behavior - VTE Documentation of Mechanical Device: Graduated compression elastic hosiery <Lorenzo Al - Last Filed: 05/21/17 19:38> Date of Encounter: 05/21/17 - Discharge Diagnosis (1) Acute on chronic respiratory failure with hypoxia Priority: Primary Status: Acute (2) Pleural effusion Status: Acute (3) Diabetes mellitus Status: Chronic Qualifiers: Diabetes mellitus type: type 2 Diabetes mellitus complication status: with unspecified complications Diabetes mellitus buttermaker helper insulin use: with nursing home use Qualified Code(s): E11.8 - Type 2 diabetes mellitus with unspecified complications; Z79.4 - snf (current) use of insulin (4) Coronary artery disease Status: Chronic Qualifiers: Coronary Disease-Associated Artery/Lesion type: unspecified vessel or lesion type [place] vs. transplanted heart: [place] heart Associated angina: without angina Qualified Code(s): I25.10 - Atherosclerotic heart disease of [place] coronary artery without angina pectoris (5) Small cell lung cancer Status: Chronic Qualifiers: Laterality: right Qualified Code(s): C34.91 - Malignant neoplasm of unspecified part of right bronchus or lung (6) Sepsis Status: Acute Qualifiers: Sepsis type: methicillin resistant Staphylococcus aureus Qualified Code(s) : A41.02 - Sepsis due to Methicillin resistant Staphylococcus aureus (7) Anemia Status: Acute Qualifiers: Anemia type: other cause Other causes of anemia: chronic disease, neoplastic Qualified Code(s): D63.0 - Anemia in neoplastic disease Procedures/tests Complete & Pending: Procedures Performed prior 72 hours Category Date Time Status EV echocardiogram Stat Y 05/21/17 17:44 Ordered Date of admission: 05/21/17 13:36 Primary care physician: Trent Lemons MD Hospital course: Ms. Jesus is a 67 year old female - Time Spent with Patient Total time spent providing and/or coordinating discharge services: - Constitutional Vitals: Temp Pulse Resp BP Pulse Ox 97.9 F 71 16 116/74 97 05/21/17 18:57 05/21/17 18:57 05/21/17 18:57 05/21/17 18:57 05/21/17 18:57 - Attending Attestation I examined this patient and my medical decision-making was reviewed with the Resident Physician on 05/21/17. I agree with the documented findings, disposition and treatment plan as described except to the extent set forth below. Ms. Jesus is currently admitted for hypoxia and large R pleural effusion s/p thoracentesis. She is very anemic today and blood cx positive for MRSA. She remains high risk due to potential for worsening respiratory and infectious status. Ms. Jesus wants to go home but blood cx positive. Breathing somewhat better today. Received blood as well. Exam Alert. Comfortable Mucus membranes dry Heart distant Rhonchi present Abd soft No edema I/P 1. Hypoxia 2. MRSA bacteremia Postpone discharge. Continue inpatient status
[2017-05-21] MEDS: Magnesium Sulfate 2 GM in D5% in Water 100 ML IVPB ONE ×2 (16:28→18:09)
--- NOTE | 2017-05-21 16:58 | Electrocardiograph Report ---
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
[2017-05-21 17:22] LABS: Acinetobacter baumannii by PCR Not Detected (Not Detect); Candida albicans by PCR Not Detected (Not Detect); Candida glabrata by PCR Not Detected (Not Detect); Candida krusei by PCR Not Detected (Not Detect); Candida parapsilosis by PCR Not Detected (Not Detect); Candida tropicalis by PCR Not Detected (Not Detect); Enterococcus by PCR Not Detected (Not Detect); Escherichia coli by PCR Not Detected (Not Detect); Klebsiella oxytoca by PCR Not Detected (Not Detect); Klebsiella pneumoniae by PCR Not Detected (Not Detect); Pseudomonas aeruginosa by PCR Not Detected (Not Detect); Serratia marcescens by PCR Not Detected (Not Detect); Staphylococcus aureus by PCR Not Detected (Not Detect); Streptococcus agalactiae(B)PCR Not Detected (Not Detect); Streptococcus by PCR Not Detected (Not Detect); Streptococcus pneumoniae PCR Not Detected (Not Detect); Streptococcus pyogenes (A) PCR Not Detected (Not Detect); blaKPC Carbapenem-Resist Gene Not Detected (Not Detect); mecA Methicillin-Resist Gene ***DETECTED*** (Not Detect); vanA/B Vancomycin-Resist Genes Not Detected (Not Detect)
[2017-05-21] MEDS ORDERED: traZODone 50 MG TABLET PO PRN (17:47)
[2017-05-21] MEDS ORDERED: *HR* LORazepam 0.5 MG TABLET PO PRN (17:48)
[2017-05-22 04:22] LABS: Basophils # 0.1 K/mcL (0.0-0.2); Basophils % 0.7 %; Eosinophils # 0.2 K/mcL (0.0-0.6); Eosinophils % 1.3 %; Hematocrit 26.2 % (35.3-44.9); Hemoglobin 8.6 g/dL (11.5-15.4); Immature Granulocytes % 11.6 % (0-4); Lymphocytes # 0.7 K/mcL (0.6-4.6); Mean Corpuscular HGB Conc 32.8 g/dL (31.6-35.5); Mean Corpuscular Hemoglobin 27.7 pg (28.0-33.3); Mean Corpuscular Volume 84.5 fL (83.0-100.0); Mean Platelet Volume 11.3 fL (9.4-12.4); Monocytes # 0.7 K/mcL (0.0-1.3); Monocytes % 6.2 %; Neutrophils # 8.8 K/mcL (1.6-8.9); Nucleated Red Blood Cells 0.7 /100 WBC (0); Platelet Count 149 K/mcL (140-400); Red Cell Distribution Width 17.4 % (11.5-14.5); Segmented Neutrophils % 74.2 %
[2017-05-22 04:27] LABS: BUN/Creatinine Ratio 17 (6-26); Blood Urea Nitrogen 16 mg/dL (7-20); Calcium 7.9 mg/dL (8.6-10.8); Carbon Dioxide 25 mEq/L (19-29); Chloride 101 mEq/L (98-109); Glucose 88 mg/dL (70-99); Osmolality,Calculated 277 (280-300); Potassium 3.6 mEq/L (3.5-4.5); Sodium 133 mEq/L (136-145); eGFR For African Americans > 60 (> 60); eGFR For Non-African Americans 58 (> 60)
[2017-05-22 05:05] LABS: Platelet Estimate Normal (Normal); Polychromasia 1+ (Not Present); Reactive Lymphocytes Present (Not Present)
[2017-05-22 05:06] LABS: Toxic Granulation Present (Not Present)
[2017-05-22] MEDS: Piperacillin/Tazobactam 3.375 GM in D5% in Water (Mini-Bag+) 100 ML IVPB SCH ×3 (05:36→23:04)
[2017-05-22] MEDS: Aspirin 81 MG TAB.CHEW PO SCH (08:58)
[2017-05-22] MEDS: Nicotine 7 MG PATCH.TD24 TD SCH (09:00)
--- NOTE | 2017-05-22 11:50 | Infectious Disease Consult ---
Date of Encounter: 05/22/17 Time of Encounter: 11:48 Assessment and Plan (1) Sepsis Status: Acute Assessment and plan: The patient had two SIRS criteria on admission. Likely multifactorial: PNA + bacteremia. Improved. Tachycardia has resolved. WBC is trending down. Blood cultures drawn 05/20/17 are positive 2/2 sets for GPC, likely CONS based on PCR results. Qualifiers: Sepsis type: methicillin resistant Staphylococcus aureus Qualified Code(s) : A41.02 - Sepsis due to Methicillin resistant Staphylococcus aureus (2) Bacteremia associated with intravascular line Status: Acute Assessment and plan: Causative organism unclear, but likely CONS. Source likely RUE PICC line, which was discontinued this morning. Peripheral blood cultures drawn 05/20/17 are positive 2/2 sets for GPC. PCR picked up Staph species and the MRS gene, but not Staph aureus. Likely CONS. No blood cultures were drawn from the PICC line. PICC line removed 05/22/17 and tip was sent for culture and is pending. Repeat blood cultures drawn 05/21/17 are pendign x 2 sets. Recommend getting additional two sets in the AM so that we have cultures drawn after PICC was removed in the event 05/21/17 cultures are positive. Continue Vancomycin IV. Pharmacy to dose. Goal trough approximately 15. Duration of treatment depends on the clinical picture. If repeat blood cultures are negative, no further antibiotic treatment is needed since the likely source has been removed. Monitor renal function and for drug toxicity while giving antibiotics. Qualifiers: Encounter type: initial encounter Qualified Code(s): T82.7XXA - Infection and inflammatory reaction due to other cardiac and vascular devices, implants and grafts, initial encounter; R78.81 - Bacteremia (3) HCAP (healthcare-associated pneumonia) Status: Acute Assessment and plan: Location: Right lower lobe. Causative organism unclear. Likely post-obstructive secondary to the patient's lung mass. Pulmonology consulted and following. Consider repeating CXR in the AM. Consider checking S. pneumo and Legionella UAT. Get sputum culture if the patient is able to provide an adequate specimen. Continue Zosyn 3.375 grams IV Q8H (day 3). Duration of treatment depends on the clinical picture, but likely a total of 7 days is adequate. Consider switching to PO when ready for discharge. Monitor renal function and dose-adjust antibiotics. (4) Pleural effusion Status: Acute Assessment and plan: CT of the chest showed a large right-sided pleural effusion. Status post thoracentesis 05/20/17. Appears transudative. Culture negative. Pathology pending. Likely secondary to the patient's malignancy. Recurrent - required thoracentesis last month as well. Patient is agreeable to Pleurex catheter as an outpatient. (5) Intractable nausea and vomiting Status: Resolved Assessment and plan: Likely secondary to chemotherapy. Resolved. Qualifiers: Vomiting type: unspecified Qualified Code(s): R11.2 - Nausea with vomiting , unspecified (6) Dehydration Status: Resolved Assessment and plan: Likely secondary to poor PO intake and nausea/vomiting. Resolved. (7) Weakness Status: Resolved Assessment and plan: Likely secondary to dehydration. Resolved. (8) Small cell lung cancer Status: Chronic Assessment and plan: Diagnosed in 2013. Follows with [facility]. Current chemotherapy regimen docetaxel every three weeks. Last treatment 05/08 with next scheduled for 05/28. Qualifiers: Laterality: right Qualified Code(s): C34.91 - Malignant neoplasm of unspecified part of right bronchus or lung (9) Anemia Status: Chronic Qualifiers: Anemia type: unspecified type Qualified Code(s): D64.9 - Anemia, unspecified Infectious Disease HPI - Data of Consult Patient: new to practice Consult date: 05/22/17 Requesting Physician: Lorenzo Al DO Primary Care Provider: Trent Lemons MD - Consult Narrative Reason for consult: Bacteremia History of present illness: Ms. Jesus is a 67 year old female with past medical history of breast cancer diagnosed in 2003 status post radiation and lumpectomy, hypertension, AR, CAD, PAD, and lung cancer diagnosed in 2013 currently on IV chemotherapy every 3 weeks. The patient was admitted to the hospital May 20 for vomiting and leukocytosis. We are consulted May 22 for further evaluation and treatment recommendations regarding bacteremia. He is a 67-year-old female with past medical history as stated above. The patient states that suddenly 3 days prior to admission she began to experience intractable nausea and vomiting with epigastric abdominal pain. Upon arrival to the ER, the patient was afebrile. She was tachycardic and had a neutrophilic leukocytosis. A CT of the chest, abdomen, and pelvis revealed a large right- sided pleural effusion with a right lower lobe consolidation and a right perihilar mass. CT of the head was negative. Urinalysis was obtained that was negative. Peripheral blood cultures were obtained 2 sets. The patient started empiric Alberto IV vancomycin, Zosyn, and Levaquin. She was admitted to the hospital for further evaluation and treatment. Since admission, the patient has clinically improved. Her white blood cell count has trended down. Pulmonology was consulted and the patient underwent a bedside thoracentesis. Fluid was sent for culture and is negative. Pathology is pending. Blood cultures obtained in the ER +2 out of 2 sets for gram-positive cocci. The PCR did picker tender the MR ST and and staph species, but not staph aureus. Repeat blood cultures were obtained yesterday afternoon. Currently, the patient is on IV vancomycin and IV Zosyn. We've been asked to evaluate and make further recommendations. My exam today, the patient states that overall she feels well and she is ready to go home. She denies any fevers or rigors at home, but does report some subjective chills. She denies any headache or neck pain. She denies any congestion, earache, or sore throat. She reports chronic shortness of breath that may have been a little bit worse prior to admission and she reports a moist productive cough of white sputum which is normal for her. She denies any pain in her chest or abdomen. She reports chronic nausea and anorexia. She states that she started having vomiting and epigastric pain that was nonradiating about 3 days prior to admission. She states that anytime she eats something she feels like it just sits in her stomach. She states she had a Popsicle on Thursday and had no is vomiting. She denies any urinary complaints. She denies any pain at all. She denies any oral thrush or skin lesions. The patient did have a PICC line in her right upper extremity through which she was receiving chemotherapy. This line has been discontinued by the primary team prior to my evaluation of the patient. CC: Lorenzo Al, DO Past Med Surg Social Fam HX - Past Medical History Attestation: Yes The following information was validated with the patient. Source: patient, old records reviewed, nursing notes reviewed Medical history: cancer (Breast cancer 2004 s/p lumpectomy and radiation, SCC of the lung 2013 stage IV currently on chemo), coronary artery disease, diabetes , myocardial infarction, peripheral artery disease, valvular heart disease Psychiatric history: anxiety, depression - Past Surgical History Surgical History: appendectomy, cancer surgery (Lumpectomy), cholecystectomy, other, vascular surgery - Social History Smoking Status: Current every day smoker Packs per day: 0.5 Smokeless Tobacco Status: No Alcohol use: none Drug use: none Occupational status: retired Current living situation: Home - Independent Activity Level: Independent ambulation Recent Out of Country Travel Within the Last 8 Weeks: No Exposure or Possible Exposure to Illness During Travel: No - Family History Mother Living Status: Hx Family Cancer: Yes (breast) Father Family Member Ethnicity: Non- Living Status: Hx Family Cardiac Disorders: Yes Infectious Disease-CN:Meds Aspirin 81 mg PO DAILY tab.chew 10/31/15 [Rx] Cholecalciferol (Vitamin D3) [Dialyvite Vitamin D] 5,000 unit PO DAILY #30 capsule 10/31/15 [Rx] Clopidogrel [Plavix] 75 mg PO DAILY #30 tablet 10/31/15 [Rx] Atorvastatin [Lipitor] 80 mg PO DAILY 01/29/16 [History] Metoprolol [Lopressor] 12.5 mg PO BID 01/29/16 [History] Omeprazole [PriLOSEC] 40 mg PO DAILY #30 cap 12/30/16 [Rx] Ibuprofen [Motrin] 600 mg PO TID PRN #20 tab 02/21/17 [Rx] Ondansetron [Zofran] 8 mg PO Q8HR PRN #90 tablet 03/13/17 [Rx] Prochlorperazine Maleate [Compazine] 10 mg PO Q8HR PRN #90 tablet 03/13/17 [Rx] Morphine Immed Rel [Morphine Sulfate] 15 mg PO BID PRN #60 tab 04/28/17 [Rx] Levothyroxine [Synthroid] 175 mcg PO DAILY #30 tablet 05/13/17 [Rx] levoFLOXacin [Levaquin] 500 mg PO DAILY 05/20/17 [History] Cefdinir [Omnicef] 300 mg PO BID #6 capsule 05/21/17 [Rx] Doxycycline 100 mg PO BID #6 capsule 05/21/17 [Rx] Lidocaine HCl [Lidocaine HCl Viscous] 15 ml MM TIDWM #7 solution 05/23/17 [Rx] 3 Allergy/AdvReac Type Severity Reaction Status Date / Time butorphanol [From Stadol] Allergy Severe Anaphylaxis Verified 05/20/17 12:40 codeine Allergy Severe Anaphylaxis Verified 05/20/17 12:40 All systems: reviewed and no additional remarkable complaints except as stated Exam - Constitutional Vitals: Temp Pulse Resp BP Pulse Ox 97.8 F 63 15 111/67 97 05/22/17 10:33 05/22/17 10:33 05/22/17 10:33 05/22/17 10:33 05/22/17 10:33 General appearance: average body habitus, cooperative, no acute distress - Head Head exam: Present: atraumatic, normal inspection, normocephalic - Eye Eye exam: Present: EOMI, normal appearance, PERRL Pupils: Present: normal accommodation Additional comments: No endocarditis stigmata noted. - ENT ENT exam: Present: mucous membranes moist - Neck Neck exam: Present: normal inspection - Respiratory Respiratory exam: Present: CTAB. Absent: rales, respiratory distress, rhonchi, wheezes - Cardiovascular Cardiovascular exam: Present: RRR, +S1, +S2 - GI/Abdominal GI/Abdominal exam: Present: normal bowel sounds, soft. Absent: distended, tenderness - Extremities Exam Extremities exam: Present: normal inspection. Absent: joint swelling, pedal edema, tenderness Additional comments: No endocarditis stigmata noted. - Back Exam Back exam: Present: normal inspection Additional comments: Left thoracentesis site noted without redness warmth, or drainage. - Neurological Exam Neurological exam: Present: alert, oriented X3, no focal deficits - Psychiatric Psychiatric exam: Present: normal affect, normal mood - Skin Skin exam: Present: dry, intact, normal color, warm Infectious Disease CN: Results - Labs CBC & Chem 7: 05/23/17 05:38 05/23/17 05:38 Cultures: Cultures 05/20/17 15:13 Blood Culture - Preliminary Peripheral Venipuncture Gram Positive Cocci 05/20/17 18:11 Body Fluid Culture - Preliminary Pleural Fluid 05/20/17 14:38 Blood Culture - Preliminary Peripheral Venipuncture Gram Positive Cocci 05/20/17 14:29 Urine Culture - Final Urine,Clean Catch No pathogens isolated. - VTE Documentation of Mechanical Device: Intermittent pneumatic compression device Consult Discharge Plan - Plan Instructions: Sepsis (DC), Pneumonia (DC) Additional Instructions: Please follow up with her primary care physician as well as oncologist for further management of your medical conditions. Please complete your course of antibiotics Referrals: Trent Lemons MD [Primary Care Provider] - Prescriptions: Cefdinir [Omnicef] 300 mg PO BID #6 capsule Doxycycline 100 mg PO BID #6 capsule Lidocaine HCl [Lidocaine HCl Viscous] 15 ml MM TIDWM #7 solution
--- NOTE | 2017-05-22 13:44 | Pulmonology Progress Note ---
Date of Encounter: 05/22/17 Time of Encounter: 08:30 Assessment and Plan (1) Pleural effusion Current Visit: Yes Status: Acute Patient has recurrent malignant effusion , patient decided to go ahead with pleurex catheter in the next week or so . Will discuss with the pulm office will call about the date when the procedure is scheduled. (2) Acute on chronic respiratory failure with hypoxia Current Visit: Yes Status: Acute Mainly due to recurrent malignant pleural effusion , please ascertain exercise oxygen needs before sending her home . Subjective Principal diagnosis: Sepsis with recurrent pleural efffusion. Interval history: Patient is saying she is lot better says she wants to go home want to go ahead with pleurex catheter in next two weeks will discuss with and the office will call about the date . Patient verbalized understanding. Objective PUL Vital signs: Last Vital Signs Temp 97.8 F 05/22/17 10:33 Pulse 63 05/22/17 10:33 Resp 15 05/22/17 10:33 BP 111/67 05/22/17 10:33 Pulse Ox 97 05/22/17 10:33 Auscultation: right: diminished breath sounds, bilateral: wheezes (mild scattered wheezes ) Results - Laboratory Findings CBC and BMP: 05/22/17 04:00 05/22/17 04:00 PT/INR, D-dimer PT 13.1 Seconds (9.4-12.1) H 05/20/17 17:15 Abnormal lab findings: Abnormal lab results WBC 11.8 K/mcL (4.3-11.1) H 05/22/17 04:00 RBC 3.10 M/mcL (3.82-4.97) L 05/22/17 04:00 Hgb 8.6 g/dL (11.5-15.4) L 05/22/17 04:00 Hct 26.2 % (35.3-44.9) L 05/22/17 04:00 MCH 27.7 pg (28.0-33.3) L 05/22/17 04:00 RDW 17.4 % (11.5-14.5) H 05/22/17 04:00 Immature Gran % 11.6 % (0-4) H 05/22/17 04:00 Band Neutrophils % 6.0 % (0-4) H 05/21/17 03:52 Metamyelocytes % 4.0 % (0) H 05/21/17 03:52 Nucleated RBCs/100 WBC 0.7 /100 WBC (0) H 05/22/17 04:00 Reactive Lymphocytes Present (Not Present) A 05/22/17 04:00 Toxic Granulation Present (Not Present) A 05/22/17 04:00 Polychromasia 1+ (Not Present) A 05/22/17 04:00 Hypochromasia Present (Not Present) A 05/21/17 03:52 Anisocytosis 1+ (Not Present) A 05/21/17 03:52 Macrocytosis Present (Not Present) A 05/20/17 12:55 PT 13.1 Seconds (9.4-12.1) H 05/20/17 17:15 Sodium 133 mEq/L (136-145) L 05/22/17 04:00 Est GFR (Non-Af Amer) 58 (> 60) L 05/22/17 04:00 Calculated Osmolality 277 (280-300) L 05/22/17 04:00 Calcium 7.9 mg/dL (8.6-10.8) L 05/22/17 04:00 Magnesium 1.3 mg/dL (1.6-2.6) L 05/21/17 03:52 Serum Total Protein 4.9 g/dL (6.0-8.3) L 05/20/17 21:00 Albumin 2.4 g/dL (3.5-5.0) L 05/20/17 12:55 Albumin/Globulin Ratio 0.7 (1.1-2.2) L 05/20/17 12:55 Urine Protein 100 mg/dL (Neg-Trace) H 05/20/17 14:29 Urine Ketones 15 mg/dL (Negative) H 05/20/17 14:29 Urine Bilirubin Moderate (Negative) H 05/20/17 14:29 Urine Microscopic WBC 5-15 per hpf (0-3) H 05/20/17 14:29 Ur Culture Indicated? YES (NO) A 05/20/17 14:29 Pleural Appearance Hazy (Clear) A 05/20/17 18:11 Pleural RBC 0.004 M/mcL (0.000-0.002) H 05/20/17 18:11 Staphylococcus sp PCR DETECTED (Not Detect) A 05/20/17 14:38 mecA-Methicil Res Gene DETECTED (Not Detect) A 05/20/17 14:38 - Clinical Findings Intake & Output: Intake & Output 05/21/17 05/22/17 05/22/17 23:59 07:59 15:59 Intake Total 160 / 160 100 / 100 80 / 80 Output Total 450 / 450 0 / 0 0 / 0 Balance -290 / -290 100 / 100 80 / 80 Weight 61.462 kg - VTE Documentation of Mechanical Device: Intermittent pneumatic compression device Consult Discharge Plan - Plan Additional Instructions: Please follow up with her primary care physician as well as oncologist for further management of your medical conditions. Please complete your course of antibiotics Referrals: Trent Lemons MD [Primary Care Provider] - Prescriptions: Cefdinir [Omnicef] 300 mg PO BID #6 capsule Doxycycline 100 mg PO BID #6 capsule
[2017-05-22] MEDS ORDERED: Vancomycin 1,000 MG in D5% in Water 250 ML IVPB SCH (16:00)
--- NOTE | 2017-05-22 16:18 | Internal Med Progress Note ---
<Ludwig Marroquin - Last Filed: 05/22/17 16:15> Date of Encounter: 05/22/17 Time of Encounter: 10:00 - Assessment and plan (1) Line sepsis Current Visit: Yes Status: Acute Assessment and plan: - Septic with tachycadia, leukocytosis, tachypnea on presentation - Blood cultures positive for CONS x2 - Likely source is PICC line which has been in for over a year. Pulled today, catheter tip sent for cultures. - ID consulted. Appreciate recs - Continue Vanc, Zosyn - Repeat blood cultures ordered for tomorrow AM - Echocardiogram this afternoon was negative for vegetations. - Per ID, if repeat cultures come back negative and PICC source identified, may send home without ABx. Qualifiers: Encounter type: initial encounter Qualified Code(s): T82.7XXA - Infection and inflammatory reaction due to other cardiac and vascular devices, implants and grafts, initial encounter (2) HCAP (healthcare-associated pneumonia) Current Visit: Yes Status: Acute Assessment and plan: - Possible RLL infiltrate on CXR, overlying pleural effusion - Vanc zosyn being given for CONS sepsis. PICC line more likely source. - Clinically improving. Will send home on oral abx of doxy and cefdinir once bacteremia has resolved. (3) Intractable nausea and vomiting Current Visit: Yes Status: Resolved Assessment and plan: - Tolerated breakfast without complaints. No n/v. - COntinue zofran, compezine Qualifiers: Vomiting type: unspecified Qualified Code(s): R11.2 - Nausea with vomiting , unspecified (4) Dehydration Current Visit: Yes Status: Resolved Assessment and plan: - Tolerating meals. Oral intake adequate. (5) Pleural effusion Current Visit: Yes Status: Acute Assessment and plan: - S/p thoracentesis on admission. 1 L of fluid extracted. Exudative based on Lights criteria - No complaints of SOB, mild cough present. - To follow up with pulmonology as outpatient regarding pleurex cath (6) Anemia Current Visit: No Status: Chronic Assessment and plan: - Stable s/p 1 unit yesterday AM . today - Stool occult not completed. No BM - Continue to monitor VS and H/H. Transfuse as needed. Qualifiers: Anemia type: unspecified type Qualified Code(s): D64.9 - Anemia, unspecified (7) Coronary artery disease Current Visit: No Status: Chronic Assessment and plan: Continue home meds. Qualifiers: Coronary Disease-Associated Artery/Lesion type: unspecified vessel or lesion type [place] vs. transplanted heart: [place] heart Associated angina: without angina Qualified Code(s): I25.10 - Atherosclerotic heart disease of [place] coronary artery without angina pectoris (8) Small cell lung cancer Current Visit: No Status: Chronic Assessment and plan: Continue outpatient treatment once discharged. - Recent chemo 2 weeks ago. Qualifiers: Laterality: right Qualified Code(s): C34.91 - Malignant neoplasm of unspecified part of right bronchus or lung (9) DVT prophylaxis Current Visit: Yes Status: Acute Assessment and plan: SCDs - Time Spent With Patient Greater than 35 minutes - Subjective Interval history: Patient was seen and examined at bedside this morning. She states she continues to be asymptomatic and tolerated some of her breakfast. She repeatedly states she would like to go home. She also admits this morning that her PICC line has been in place for approximately 1 year from March. She denies overnight fevers, chills, CP, SOB. Many questions were answered to patient and family and she is in agreement to continue treatment at this time after considering leaving AMA - Constitutional Vitals: Temp Pulse Resp BP Pulse Ox 97.9 F 89 18 109/58 99 05/22/17 14:40 05/22/17 14:40 05/22/17 14:40 05/22/17 14:40 05/22/17 14:40 Exam: Gen.: Vitals noted. No acute distress. AAOx3 HEENT: PERRL/EOMI, oropharynx clear, Normocephalic, atraumatic Neck: Supple. No adenopathy. Cardiac: RRR, no murmur, +S1/S2 Pulmonary: Decreased breaths sounds on right. no wheezes, rales or rhonchi, equal chest expansion Abdomen: soft, nontender, BS noted, no guarding Back: Nontender throughout. MSK: ROM intact, no joint swelling noted Extremities: no BLE edema, nontender calf, no cyanosis or clubbing Neuro: A&Ox3, moves all extremities, no focal deficits Psych: Appropriate mood and behavior Internal Medicine: Result - Labs CBC & Chem 7: 05/22/17 04:00 05/22/17 04:00 Labs: Short CBC 05/22/17 Range/Units 04:00 WBC 11.8 H (4.3-11.1) K/mcL Hgb 8.6 L (11.5-15.4) g/dL Hct 26.2 L (35.3-44.9) % Plt Count 149 (140-400) K/mcL Neutrophils # 8.8 (1.6-8.9) K/mcL BMP 05/22/17 04:00 Sodium 133 L Potassium 3.6 Chloride 101 Carbon Dioxide 25 BUN 16 Creatinine 0.96 Glucose 88 Calcium 7.9 L - ABG Interpretation ABG results: PT/INR, D-dimer PT 13.1 Seconds (9.4-12.1) H 05/20/17 17:15 - VTE Documentation of Mechanical Device: Intermittent pneumatic compression device Consult Discharge Plan - Plan Additional Instructions: Please follow up with her primary care physician as well as oncologist for further management of your medical conditions. Please complete your course of antibiotics Referrals: Trent Lemons MD [Primary Care Provider] - Prescriptions: Cefdinir [Omnicef] 300 mg PO BID #6 capsule Doxycycline 100 mg PO BID #6 capsule <Lorenzo Al - Last Filed: 05/22/17 18:26> Date of Encounter: 05/22/17 - Assessment and plan (1) Acute on chronic respiratory failure with hypoxia Current Visit: Yes Status: Acute (2) CLABSI (central line-associated bloodstream infection) Current Visit: Yes Status: Acute Assessment and plan: Present on admission. Qualifiers: Encounter type: initial encounter Qualified Code(s): T80.211A - Bloodstream infection due to central venous catheter, initial encounter (3) Sepsis Current Visit: Yes Status: Acute Qualifiers: Sepsis type: methicillin resistant Staphylococcus aureus Qualified Code(s) : A41.02 - Sepsis due to Methicillin resistant Staphylococcus aureus (4) Pleural effusion Current Visit: Yes Status: Acute (5) Coronary artery disease Current Visit: No Status: Chronic Qualifiers: Coronary Disease-Associated Artery/Lesion type: unspecified vessel or lesion type [place] vs. transplanted heart: [place] heart Associated angina: without angina Qualified Code(s): I25.10 - Atherosclerotic heart disease of [place] coronary artery without angina pectoris (6) Diabetes mellitus Current Visit: No Status: Chronic Qualifiers: Diabetes mellitus type: type 2 Diabetes mellitus complication status: with unspecified complications Diabetes mellitus buttermaker insulin use: with correction use Qualified Code(s): E11.8 - Type 2 diabetes mellitus with unspecified complications; Z79.4 - assisted (current) use of insulin (7) Small cell lung cancer Current Visit: No Status: Chronic Qualifiers: Laterality: right Qualified Code(s): C34.91 - Malignant neoplasm of unspecified part of right bronchus or lung (8) Anemia Current Visit: Yes Status: Acute Qualifiers: Anemia type: other cause Other causes of anemia: chronic disease, neoplastic Qualified Code(s): D63.0 - Anemia in neoplastic disease - Constitutional Vitals: Temp Pulse Resp BP Pulse Ox 97.9 F 89 18 109/58 99 05/22/17 14:40 05/22/17 14:40 05/22/17 14:40 05/22/17 14:40 05/22/17 14:40 Internal Medicine: Result - Labs CBC & Chem 7: 05/22/17 04:00 05/22/17 04:00 Labs: Short CBC 05/22/17 Range/Units 04:00 WBC 11.8 H (4.3-11.1) K/mcL Hgb 8.6 L (11.5-15.4) g/dL Hct 26.2 L (35.3-44.9) % Plt Count 149 (140-400) K/mcL Neutrophils # 8.8 (1.6-8.9) K/mcL BMP 05/22/17 04:00 Sodium 133 L Potassium 3.6 Chloride 101 Carbon Dioxide 25 BUN 16 Creatinine 0.96 Glucose 88 Calcium 7.9 L - ABG Interpretation ABG results: PT/INR, D-dimer PT 13.1 Seconds (9.4-12.1) H 05/20/17 17:15 - Attending Attestation I examined this patient and my medical decision-making was reviewed with the Resident Physician on 05/22/17. I agree with the documented findings, disposition and treatment plan as described except to the extent set forth below. Ms. Jesus is currently admitted for pleural effusion and anemia but has been found to have CLABSI with presumed coag neg staph. She remains high risk due to potential for further respiratory and infectious complications. Ms. Jesus is doing OK. She wants to go home. Breathing is OK. H/H stable. PICC line removed today and tip sent. No fever or chills. Exam Alert. Comfortable Heart not tachy Lungs with rhonchi Abd soft No edema I/P 1. CLABSI - present on admit 2. Anemia Further diagnoses and plan as above.
[2017-05-22] MEDS ORDERED: traZODone 50 MG TABLET PO PRN (16:35)
[2017-05-23] MEDS: Piperacillin/Tazobactam 3.375 GM in D5% in Water (Mini-Bag+) 100 ML IVPB SCH (05:50)
[2017-05-23 06:29] LABS: Hematocrit 27.4 % (35.3-44.9); Hemoglobin 8.8 g/dL (11.5-15.4); Mean Corpuscular HGB Conc 32.1 g/dL (31.6-35.5); Mean Corpuscular Hemoglobin 27.2 pg (28.0-33.3); Mean Corpuscular Volume 84.8 fL (83.0-100.0); Mean Platelet Volume 12.1 fL (9.4-12.4); Platelet Count 153 K/mcL (140-400); Red Blood Count 3.23 M/mcL (3.82-4.97)
[2017-05-23 06:39] LABS: BUN/Creatinine Ratio 14 (6-26); Blood Urea Nitrogen 13 mg/dL (7-20); Carbon Dioxide 25 mEq/L (19-29); Chloride 103 mEq/L (98-109); Glucose 90 mg/dL (70-99); Osmolality,Calculated 280 (280-300); Potassium 3.6 mEq/L (3.5-4.5); Sodium 135 mEq/L (136-145); eGFR For African Americans > 60 (> 60); eGFR For Non-African Americans 60 (> 60)
[2017-05-23] MEDS: Aspirin 81 MG TAB.CHEW PO SCH (08:55)
[2017-05-23] MEDS: Nicotine 7 MG PATCH.TD24 TD SCH (08:55)
[2017-05-23 11:40] VITALS: BP 114/73
[2017-05-23] MEDS ORDERED: Aminoglycoside Consult 1 EACH MC ONE (13:35)
--- NOTE | 2017-05-23 16:19 | Discharge Summary ---
<Ludwig Marroquin - Last Filed: 05/23/17 16:15> Date of Encounter: 05/23/17 Time of Encounter: 11:00 - Discharge Diagnosis (1) Line sepsis Priority: Primary Status: Resolved Qualifiers: Encounter type: initial encounter Qualified Code(s): T82.7XXA - Infection and inflammatory reaction due to other cardiac and vascular devices, implants and grafts, initial encounter (2) HCAP (healthcare-associated pneumonia) Priority: Secondary Status: Acute (3) Intractable nausea and vomiting Priority: Secondary Status: Resolved Qualifiers: Vomiting type: unspecified Qualified Code(s): R11.2 - Nausea with vomiting , unspecified (4) Dehydration Priority: Secondary Status: Resolved (5) Pleural effusion Priority: Secondary Status: Acute (6) Anemia Priority: Secondary Status: Chronic Qualifiers: Anemia type: unspecified type Qualified Code(s): D64.9 - Anemia, unspecified (7) Coronary artery disease Priority: Secondary Status: Chronic Qualifiers: Coronary Disease-Associated Artery/Lesion type: unspecified vessel or lesion type [place] vs. transplanted heart: [place] heart Associated angina: without angina Qualified Code(s): I25.10 - Atherosclerotic heart disease of [place] coronary artery without angina pectoris (8) Small cell lung cancer Priority: Secondary Status: Chronic Qualifiers: Laterality: right Qualified Code(s): C34.91 - Malignant neoplasm of unspecified part of right bronchus or lung (9) DVT prophylaxis Priority: Secondary Status: Acute - Discharge Medications Prescriptions: Cefdinir [Omnicef] 300 mg PO BID #6 capsule Doxycycline 100 mg PO BID #6 capsule Lidocaine HCl [Lidocaine HCl Viscous] 15 ml MM TIDWM #7 solution Home Medications: Aspirin 81 mg PO DAILY tab.chew 10/31/15 [Rx] Cholecalciferol (Vitamin D3) [Dialyvite Vitamin D] 5,000 unit PO DAILY #30 capsule 10/31/15 [Rx] Clopidogrel [Plavix] 75 mg PO DAILY #30 tablet 10/31/15 [Rx] Atorvastatin [Lipitor] 80 mg PO DAILY 01/29/16 [History] Metoprolol [Lopressor] 12.5 mg PO BID 01/29/16 [History] Omeprazole [PriLOSEC] 40 mg PO DAILY #30 cap 12/30/16 [Rx] Ibuprofen [Motrin] 600 mg PO TID PRN #20 tab 02/21/17 [Rx] Ondansetron [Zofran] 8 mg PO Q8HR PRN #90 tablet 03/13/17 [Rx] Prochlorperazine Maleate [Compazine] 10 mg PO Q8HR PRN #90 tablet 03/13/17 [Rx] Morphine Immed Rel [Morphine Sulfate] 15 mg PO BID PRN #60 tab 04/28/17 [Rx] Levothyroxine [Synthroid] 175 mcg PO DAILY #30 tablet 05/13/17 [Rx] levoFLOXacin [Levaquin] 500 mg PO DAILY 05/20/17 [History] Cefdinir [Omnicef] 300 mg PO BID #6 capsule 05/21/17 [Rx] Doxycycline 100 mg PO BID #6 capsule 05/21/17 [Rx] Lidocaine HCl [Lidocaine HCl Viscous] 15 ml MM TIDWM #7 solution 05/23/17 [Rx] Allergies/Adverse Reactions: 3 Allergy/AdvReac Type Severity Reaction Status Date / Time butorphanol [From Stadol] Allergy Severe Anaphylaxis Verified 05/20/17 12:40 codeine Allergy Severe Anaphylaxis Verified 05/20/17 12:40 Procedures/tests Complete & Pending: Procedures Performed prior 72 hours Category Date Time Status EV echocardiogram Stat Y 05/22/17 17:44 Completed Date of admission: 05/21/17 13:36 Primary care physician: Trent Lemons MD Consults: 05/22/17 09:30 Consult to Infectious Diseases [CONS] Routine Consulting Provider: [facility] Reason for Consult: Bacteremia Time Notified: 09:30 Call Completed: Yes Discharging clinician: Ludwig Marroquin Anticipated date of discharge: 05/23/17 - Patient Status Disposition: Home, Self-Care Condition: Fair Functional capacity at discharge: independent ambulation Overall status at discharge: patient is progressing back to baseline - Discharge Instructions Instructions: Sepsis (DC), Pneumonia (DC) Follow Up With: Trent Lemons MD [Primary Care Provider] - Forms: ED Satisfaction Letter, Work/School Release Additional Instructions: Please follow up with her primary care physician as well as oncologist for further management of your medical conditions. Please complete your course of antibiotics - Diet and Activity Activity: increase activity as tolerated, resume usual activities as tolerated Diet: advance to your usual diet Hospital course: Ms. Jesus is a 67 year old female presenting to emergency room with a complaint of nausea, vomiting, without aphasia 3 days. She has history of small cell lung cancer for which she is receiving chemotherapy, most recently 2 weeks ago. She states that she began to experience gradual onset nausea with 3 episodes of vomiting most recently on Thursday. She was seen by her oncologist that morning, and was told to come the emergency room for dehydration. Workup in the emergency room revealed vital signs significant for a pulse of 146, and a respiratory rate of 20 remainder within normal limits. Lab results were significant for 19.3 with WBC, H&H of 8.6/28.2, BUN/creatinine of 25/1.13, sodium of 134. Negative troponin, lactic acid of 1.4, urinalysis negative for infection. Abdominal CT showed a large right pleural effusion without acute or inflammatory process. Head CT revealed no acute intracranial abnormality. Chest x-ray showed complete opacification of the right hemithorax likely a combination of pleural fluid and consolidation which has progressed from prior exam. Patient was admitted to medicine service for further management of sepsis secondary to pneumonia versus indwelling PICC line, as well as pleural effusion, intractable nausea and vomiting. During course of hospital stay, patient gradually improved and was able to tolerate her diet after receiving Compazine, Zofran, GI cocktail in the emergency room. She had a thoracentesis removing 1 L of fluid which by light's criteria was exudative likely secondary to malignancy. Her sepsis resolves and blood cultures were positive for coagulase-negative staphylococci. She was started on vancomycin, Zosyn. Her PICC line was removed on the morning of 05/22, cultures reveal no growth at this time however clinical suspicion as source of infection remains high given Staphylococcus bacteremia. Echocardiogram revealed no signs of vegetations. Repeat blood cultures were negative for growth. During course of admission, infectious disease was consulted and agreed with source of infection. They recommended that if blood cultures were negative on third draw, no further antibiotic treatment as needed and given source has been removed. Patient was sent home with antibiotic regimen of doxycycline and Cefdinir and was instructed to complete her course of antibiotics to completion for possible PNA source. On day of discharge, patient remained afebrile, vitals were within normal limits, she was asymptomatic. She will be discharged home in stable medical condition and instructed to follow-up with her primary care, oncologist and instructed to complete her course of antibiotics. - Time Spent with Patient Total time spent providing and/or coordinating discharge services: 40 minutes - Constitutional Vitals: Temp Pulse Resp BP Pulse Ox 98.2 F 68 18 114/73 96 05/23/17 11:30 05/23/17 11:30 05/23/17 11:30 05/23/17 11:30 05/23/17 11:30 Exam: Gen.: Vitals noted. No acute distress. AAOx3 HEENT: PERRL/EOMI, oropharynx clear, Normocephalic, atraumatic, moist mucous membranes Neck: Supple. No adenopathy. Cardiac: RRR, no murmur, +S1/S2 Pulmonary: Decreased breath sounds on the right, mild rales on left otherwise clear to auscultation Abdomen: soft, nontender, BS noted, no guarding Back: Nontender throughout. MSK: ROM intact, no joint swelling noted Extremities: no BLE edema, nontender calf, no cyanosis or clubbing Neuro: A&Ox3, moves all extremities, no focal deficits Psych: Appropriate mood and behavior - VTE Documentation of Mechanical Device: Intermittent pneumatic compression device <Lorenzo Al - Last Filed: 05/23/17 18:43> Date of Encounter: 05/23/17 - Discharge Diagnosis (1) Acute on chronic respiratory failure with hypoxia Priority: Primary Status: Acute (2) CLABSI (central line-associated bloodstream infection) Priority: Primary Status: Acute Qualifiers: Encounter type: subsequent encounter Qualified Code(s): T80.211D - Bloodstream infection due to central venous catheter, subsequent encounter (3) Sepsis Priority: Secondary Status: Acute Qualifiers: Sepsis type: methicillin resistant Staphylococcus aureus Qualified Code(s) : A41.02 - Sepsis due to Methicillin resistant Staphylococcus aureus (4) Pleural effusion Status: Acute (5) Coronary artery disease Status: Chronic Qualifiers: Coronary Disease-Associated Artery/Lesion type: unspecified vessel or lesion type [place] vs. transplanted heart: [place] heart Associated angina: without angina Qualified Code(s): I25.10 - Atherosclerotic heart disease of [place] coronary artery without angina pectoris (6) Diabetes mellitus Priority: Secondary Status: Chronic Qualifiers: Diabetes mellitus type: type 2 Diabetes mellitus complication status: with unspecified complications Diabetes mellitus jail insulin use: with oil heaterman use Qualified Code(s): E11.8 - Type 2 diabetes mellitus with unspecified complications; Z79.4 - prison (current) use of insulin (7) Small cell lung cancer Status: Chronic Qualifiers: Laterality: right Qualified Code(s): C34.91 - Malignant neoplasm of unspecified part of right bronchus or lung (8) Anemia Priority: Secondary Status: Acute Qualifiers: Anemia type: other cause Other causes of anemia: chronic disease, neoplastic Qualified Code(s): D63.0 - Anemia in neoplastic disease Procedures/tests Complete & Pending: Procedures Performed prior 72 hours Category Date Time Status EV echocardiogram Stat Y 05/22/17 17:44 Completed Date of admission: 05/21/17 13:36 Primary care physician: Trent Lemons MD Consults: 05/22/17 09:30 Consult to Infectious Diseases [CONS] Routine Consulting Provider: [facility] Reason for Consult: Bacteremia Time Notified: 09:30 Call Completed: Yes Hospital course: Ms. Jesus is a 67 year old female - Time Spent with Patient Total time spent providing and/or coordinating discharge services: - Constitutional Vitals: Temp Pulse Resp BP Pulse Ox 98.2 F 68 18 114/73 96 05/23/17 11:30 05/23/17 11:30 05/23/17 11:30 05/23/17 11:30 05/23/17 11:30 - Attending Attestation I examined this patient and my medical decision-making was reviewed with the Resident Physician on 05/23/17. I agree with the documented findings, disposition and treatment plan as described except to the extent set forth below. Ms. Jesus is doing OK today. Blood cx now negative. PICC line out. No fever and vitals stable Exam Alert. Comfortable Heart reg Abd soft Diminished lungs Plan D/C today PICC tip cx and repeat blood cultures are negative. I still feel this is a line infection and she is being discharged on Omnicef and Doxy to cover pneumonia.
== END 2017-05-23 13:36 | disposition home or self-care (01) | DRG 314 ==
LOC: 3ANU 12:35 → EMEROO 12:35 → 3ANU 16:41 → SUATTDRO 05-21 13:36
PROVIDERS: ADMIT Internal Medicine; ATTEND Internal Medicine